=== PATIENT | female | born 1965 | race Caucasian/White ===

== ENCOUNTER 2022-12-14 23:45 | Emergency (ER) | payer SELFPAY ==
[2022-12-14 23:59] VITALS: BP 167/105; PULSE 114; RESP 18; TEMP 36.6; O2SAT 92; BMI 17.9
--- NOTE | 2022-12-15 00:13 | XRR_ITS ---
PROCEDURE INFORMATION: Exam: XR Chest Exam date and time: 12/15/2022 12:16 AM Age: 57 years old Clinical indication: Shortness of breath; Patient HX: C/O SOB. History of copd. TECHNIQUE: Imaging protocol: Radiologic exam of the chest. Views: 1 view. COMPARISON: No relevant prior studies available. FINDINGS: Lungs: The lungs are hyperinflated, consistent with COPD. Mild bilateral increased interstitial lung markings, likely chronic. No consolidative pulmonary infiltrates are noted. Pleural spaces: No pleural effusion. No pneumothorax. Heart/Mediastinum: No cardiomegaly. Vasculature: The thoracic aorta is atherosclerotic. Bones/joints: Degenerative spine changes. No acute abnormality. XR/XR chest 1V portable [id number] IMPRESSION: 1. The lungs are hyperinflated, consistent with COPD. 2. No acute abnormality demonstrated.
[2022-12-15] MEDS: predniSONE 20 mg Tablet 40 MG PO (00:16)
[2022-12-15 00:17] VITALS: BP 130/106; PULSE 118; RESP 20; O2SAT 90
[2022-12-15 00:26] VITALS: PULSE 114; RESP 18; O2SAT 94
[2022-12-15] MEDS: ipratropium-albuterol 3 mL Neb INHALATION (00:26)
[2022-12-15 00:28] VITALS: PULSE 115; RESP 18; O2SAT 93
[2022-12-15] MEDS: ibuprofen 600 mg Tablet PO (01:14)
[2022-12-15 01:17] VITALS: BP 150/93; PULSE 91; RESP 114; O2SAT 91
--- NOTE | 2022-12-15 04:09 | W.ED.SOB ---
HPI - SOB/Dyspnea General: Chief Complaint: Shortness of Breath/Dyspnea Stated Complaint: SOB Time Seen by Provider: 12/15/22 00:05 History of Present Illness: HPI Narrative: 57-year-old female with a history of COPD. She presents with some shortness of breath as her chief complaint. She was picked up this evening by [facility] deputies, and was on her way to long term. The physician at the long term wanted her to be cleared medically due to her history. She has had some wheezing and sputum production. No fever. Associated symptoms: Reports nausea; Deny abdominal pain, chest pain, fever(s), palpitations or vomiting Review of Systems Const: Reports: chills; Denies: fever(s) ENMT: Denies: throat pain Card: Denies: chest pain or palpitations Resp: Reports: dyspnea, productive cough and wheezing; Denies: stridor GI: Reports: nausea; Denies: abdominal pain or vomiting Skin/Breast: Denies: rash Physical Exam Const: COMMON NORMALS: alert GENERAL APPEARANCE: well developed ORIENTATION/CONSCIOUSNESS: Yes awake, Yes oriented to person, Yes oriented to place and Yes oriented to time HENMT: COMMON NORMALS: normocephalic, external ears normal, Normal external nose present and moist oral mucous membranes HEAD & SCALP: normocephalic; no scalp tenderness FACE & SINUS: normal facial exam NOSE: Normal external nose present and No nasal discharge present EXTERNAL EAR: Yes external ears normal MOUTH: tongue normal TEETH & GINGIVA: no abnormal tooth and associated gingiva THROAT: posterior oropharynx normal; no peritonsillar mass Eye: COMMON NORMALS: Equal, round and reactive pupils present, EOMs intact bilaterally and conjunctivae normal EYELID: eyelids normal CONJUNCTIVA: Yes conjunctivae normal PUPIL: Yes Equal, round and reactive pupils present Neck/C-Spine: COMMON NORMALS: full ROM GENERAL: Yes anterior neck swelling and No tracheal deviation CERVICAL SPINE: Yes normal cervical lordosis, No Cervical spine tenderness, No step off deformity, No Paracervical muscle tenderness and No Paracervical spasm Chest: COMMONS NORMALS: normal inspection of the chest CHEST: Yes Symmetrical chest wall rise and No tenderness Resp: COMMON NORMALS: clear to auscultation bilaterally EFFORT & INSPECTION: No tachypneic, No respiratory distress, No retractions, No uses accessory muscles and No tracheal deviation AUSCULTATION: clear to auscultation bilaterally, no rhonchi, wheezes and lung sounds not diminished Cardio: COMMON NORMALS: regular rate and regular rhythm RATE: regular rate RHYTHM: regular rhythm HEART SOUNDS: no murmurs PERIPHERAL PULSES: radial pulses present GI: INSPECTION: No abdominal distension AUSCULTATION: No Hyperactive bowel sounds present and No Hypoactive bowel sounds present PALPATION: No Tenderness to palpation present (GI), No Guarding due to palpation present (GI) and No Rigid due to palpation PERCUSSION: no dullness to percussion and no tympanic to percussion : COMMON NORMALS: Yes no CVA tenderness BLADDER/KIDNEY EXAM: Yes no CVA tenderness Back/Pelvis: COMMON NORMALS: no CVA tenderness PELVIS: Yes no pain with anterior-posterior compression and Yes no pain with lateral compression Extremity: COMMON NORMALS: no pedal edema Neuro: SENSORIUM/ORIENTATION: Yes alert, Yes oriented to person, Yes oriented to place and Yes oriented to time Psych: COMMON NORMALS: mental status grossly normal and speech normal SPEECH: Yes normal speech Skin: COMMON NORMALS: no rashes or lesions noted GENERAL SKIN EXAM: no rashes or lesions noted Course Vital Signs: Vital signs: Vital Signs Temperature 97.8 F 12/14/22 23:59 Pulse Rate 91 12/15/22 01:17 Respiratory Rate 114 H 12/15/22 01:17 Blood Pressure 150/93 12/15/22 01:17 Pulse Oximetry 91 12/15/22 01:17 Oxygen Delivery Me thod Room Air 12/15/22 00:28 MDM - SOB/Dyspnea Medical Decision Making 57-year-old female COPD patient. She is wheezing. Her vital signs are essentially normal. She is in no respiratory distress. She is afebrile. Chest x-ray is negative for infiltrate. She is given a breathing treatment here, steroids. She will be discharged on albuterol and steroids to return for any worsening symptoms. Lab Data Labs/Radiology: Radiology Impressions Chest X-Ray 12/15/22 00:13 IMPRESSION: 1. The lungs are hyperinflated, consistent with COPD. 2. No acute abnormality demonstrated. Discharge Plan Discharge Patient Disposition: Home Clinical Impression: Acute exacerbation of chronic obstructive airways disease Condition: Stable Prescriptions: New Medrol (Junito) 4 mg tablets,dose pack See Rx Instructions .ROUTE .COMPLEX Qty: 21 0RF Rx Instructions: orally per package directions albuterol sulfate 90 mcg/actuation HFA aerosol inhaler 2 inh INHALATION Q4H PRN (Reason: shortness of breath or wheezing) Qty: 6.7 1RF Discharge Orders: Discharge ED (Routine); Ordered 12/15/22 Ordered By: Jb Peters Patient Instructions: COPD (Chronic Obstructive Pulmonary Disease) (ED) Activity Restrictions/Additional Instructions: Use the inhaler every 4 hours while awake for the first 48 hours, then as needed. Other medication as directed. Coding Level of Care Code ED C[employer] for Princess Maldonado
== END 2022-12-15 01:44 | disposition home or self-care (01) ==
PROVIDERS: Emergency Provider Emergency Medicine
DX: J44.1 Chronic obstructive pulmonary disease with (acute) exacerbation (principal)
CPT/HCPCS: 71045; 94640; 99283; J7512

== ENCOUNTER 2022-12-16 03:02 | Observation (INO) | payer SELFPAY ==
[2022-12-16] VITALS (21 sets, daily range): BP systolic 107–131; BP diastolic 75–91; PULSE 86–113; RESP 15–28; TEMP 36.5–37.1; O2SAT 84–99; BMI 14.6
--- NOTE | 2022-12-16 03:28 | ECG_ITS ---
[facility] Test Date: 2022-12-16 Pat Name: Chantal Avila Department: Room: Gender: Female Senior Staff Consultant: : 1965 Requested By: Jb Murphy Order Number: [id number] Pope MD: Jasen Mckinnon M.D. Measurements Intervals [place] Rate: 101 P: 83 CO: 126 QRS: 80 QRSD: 90 T: 80 QT: 359 QTc: 467 Interpretive Statements SINUS TACHYCARDIA POSSIBLE RIGHT ATRIAL ENLARGEMENT [0.25mV P-WAVE] POSSIBLE LEFT ATRIAL ENLARGEMENT [-0.1mV P-WAVE IN V1/V2] ABNORMAL RHYTHM ECG No previous ECG available for comparison Electronically Signed On 12-16-2022 15:15:54 CDT by Jasen Mckinnon M.D. [id number] f
[2022-12-16] MEDS: ipratropium-albuterol 3 mL Neb INHALATION ×5 (04:00→20:32)
--- NOTE | 2022-12-16 04:29 | XRR_ITS ---
PROCEDURE INFORMATION: Exam: XR Chest Exam date and time: 12/16/2022 4:33 AM Age: 57 years old Clinical indication: Shortness of breath; Patient HX: C/O SOB. TECHNIQUE: Imaging protocol: Radiologic exam of the chest. Views: 1 view. COMPARISON: CR (CHEST, ) 12/15/2022 12:16 AM FINDINGS: Lungs: There is pulmonary hyperinflation consistent with advanced COPD. There is moderate interstitial coarsening/fibrosis. There is increasing opacity at the left lung base. Pleural spaces: No pleural effusion or pneumothorax. Heart/Mediastinum: Normal in size. Bones/joints: No acute fracture is identified. XR/XR chest 1V portable [id number] IMPRESSION: 1. Pulmonary hyperinflation and interstitial coarsening consistent with COPD interstitial fibrosis. 2. There is increasing opacity at the left lung base. This may represent an area of atelectasis or in the appropriate clinical setting, developing pneumonia.
[2022-12-16 04:48] LABS: Basophils # 0.2 10^3/uL (0.0-0.1); Basophils % 1.2 %; Eosinophils # 0.8 10^3/uL (0.0-0.8); Eosinophils % 6.3 %; Hematocrit 41.8 % (36-47); Lymphocytes # 3.2 10^3/uL (0.8-4.8); Mean Corpuscular HGB Conc 31.8 g/dL (30-55); Mean Corpuscular Hemoglobin 31.1 pg (27-33); Mean Corpuscular Volume 97.9 fl (85-98); Mean Platelet Volume 9.6 fL (7.4-10.4); Monocytes # 1.4 10^3/uL (0.2-0.9); Monocytes % 10.5 %; Neutrophils # 7.54 10^3/uL (1.8-7.7); Neutrophils % 57.7 %; Nucleated Red Blood Cells % 0 %; Platelet Count 453 10^3/cmm (157-399); Red Blood Count 4.27 10^6/uL (3.85-5.65); Red Cell Distribution Width 14.5 % (12.1-15.1)
[2022-12-16 05:12] LABS: Lactic Sepsis W/Reflex 0.9 mmol/L (0.5-2.2)
[2022-12-16 05:13] LABS: Alanine Aminotransferase 10 U/L (0-33); Albumin Level 3.5 g/dL (3.5-5.2); Alkaline Phosphatase 132 U/L (35-105); Anion Gap 13.5 (5-19); Aspartate Amino Transferase 14 U/L (0-32); Blood Urea Nitrogen 18 mg/dL (6-20); Calcium 8.7 mg/dL (8.5-10.5); Carbon Dioxide 26 mmol/L (22-29); Chloride 102 mmol/L (98-107); Globulin 3.9 g/dL (1.3-4.6); Glomerular Filtration Rate 128.1 mL/min (90-130); Glucose 102 mg/dL (65-115); Osmolality Calculated 288 mOsm/kg (285-295); Potassium 3.5 mmol/L (3.5-5.1); Sodium 138 mmol/L (136-145); Total Bilirubin 0.3 mg/dL (0.15-1.2); Total Protein 7.4 g/dL (6.6-8.7)
[2022-12-16] MEDS: cefTRIAXone 1,000 MG in sodium chloride 0.9% (plus) 50 ML 100 MG IV (06:06)
[2022-12-16] MEDS: azithromycin 500 MG in sodium chloride 0.9% 250 ML 250 MG IV (06:09)
--- NOTE | 2022-12-16 06:38 | ED_ITS ---
Documented by User: Jb Peters, 12/16/22 15:16 HPI - SOB/Dyspnea General: Chief Complaint: Shortness of Breath/Dyspnea Stated Complaint: SOB Time Seen by Provider: 12/16/22 04:10 Source: patient History of Present Illness: HPI Narrative: 57-year-old female with a history of COPD whom I saw night before last with shortness of breath. She was diagnosed with COPD exacerbation, placed on Medrol Dosepak, albuterol inhaler, and allowed to be discharged. She was in custody at that point. She presents this morning with continued shortness of breath. Evidently she was 84% on room air in the [place] [facility]. She was in mild respiratory distress. She was brought here for evaluation. Evidently the [place] [facility] does not have oxygen availability currently. MD elicited complaint: shortness of breath Associated symptoms: Reports nausea; Deny abdominal pain, chest pain, fever(s), palpitations or vomiting Review of Systems General: Denies: ROS unobtainable due to mental status Const: Reports: chills; Denies: fever(s) ENMT: Denies: throat pain Card: Denies: chest pain or palpitations Resp: Reports: dyspnea and productive cough GI: Reports: nausea; Denies: abdominal pain or vomiting Skin/Breast: Denies: rash Neuro: Denies: headache(s) or confusion Physical Exam Const: GENERAL APPEARANCE: cooperative, ill appearing and frail appearing HENMT: COMMON NORMALS: normocephalic, atraumatic and Normal external nose present HEAD & SCALP: normocephalic and atraumatic FACE & SINUS: normal facial exam and face symmetric NOSE: Normal external nose present Eye: COMMON NORMALS: Equal, round and reactive pupils present and EOMs intact bilaterally PUPIL: Yes Equal, round and reactive pupils present Neck/C-Spine: GENERAL: Yes trachea midline Chest: CHEST: Yes Symmetrical chest wall rise Resp: EFFORT & INSPECTION: Yes tachypneic AUSCULTATION: rhonchi and wheezes Cardio: COMMON NORMALS: regular rhythm RATE: tachycardic RHYTHM: regular rhythm GI: COMMON NORMALS: Normal to inspection, nondistended, normoactive bowel sounds present Extremity: COMMON NORMALS: no pedal edema Neuro: IBAN COMA SCALE: document GCS findings Iban coma scale eye opening: Spontaneous Iban coma scale verbal response: Orientated Iban coma scale motor response: Obey commands [place] coma scale total score: 15 SENSORY EXAM: Yes extremities (intact) Psych: COMMON NORMALS: speech normal SPEECH: Yes normal speech Skin: COMMON NORMALS: no rashes or lesions noted GENERAL SKIN EXAM: no rashes or lesions noted Course Vital Signs: Vital signs: Vital Signs Temperature 98.2 F 12/16/22 12:00 Pulse Rate 99 12/16/22 12:00 Respiratory Rate 15 12/16/22 12:00 Blood Pressure 117/75 12/16/22 12:00 Pulse Oximetry 96 12/16/22 12:00 Oxygen Delivery Me thod Nasal Cannula 12/16/22 13:52 Oxygen Flow Rate 2 12/16/22 11:10 MDM - SOB/Dyspnea Medical Decision Making The patient is oxygen dependent at this point. Room air saturations are in the mid 80s. She is 98% on 2 L. Other vitals are normal. White blood cell count is 13. Chest x-ray shows an opacity in the left lung base consistent with early pneumonia that was not present on the chest x-ray done 24 hours prior. Lactic acid is 0.9. Other laboratory is not remarkable. Given she is oxygen dependent, has leukocytosis and a left lower lobe infiltrate, without availability to oxygen as an outpatient, she will require admission. Lab Data 12/16/22 04:44 12/16/22 04:44 Labs/Radiology: Radiology Impressions Chest X-Ray 12/16/22 04:29 IMPRESSION: 1. Pulmonary hyperinflation and interstitial coarsening consistent with COPD interstitial fibrosis. 2. There is increasing opacity at the left lung base. This may represent an area of atelectasis or in the appropriate clinical setting, developing pneumonia. Laboratory Results WBC 13.10 10^3/uL (3.29-11.43) H 12/16/22 04:44 RBC 4.27 10^6/uL (3.85-5.65) 12/16/22 04:44 Hgb 13.30 g/dL (11.27-16.99) 12/16/22 04:44 Hct 41.8 % (36-47) 12/16/22 04:44 MCV 97.9 fl (85-98) 12/16/22 04:44 MCH 31.1 pg (27-33) 12/16/22 04:44 MCHC 31.8 g/dL (30-55) 12/16/22 04:44 RDW 14.5 % (12.1-15.1) 12/16/22 04:44 Plt Count 453 10^3/cmm (157-399) H 12/16/22 04:44 MPV 9.6 fL (7.4-10.4) 12/16/22 04:44 Neut % (Auto) 57.7 % 12/16/22 04:44 Lymph % (Auto) 24.0 % 12/16/22 04:44 [place] % (Auto) 10.5 % 12/16/22 04:44 Eos % (Auto) 6.3 % 12/16/22 04:44 Baso % (Auto) 1.2 % 12/16/22 04:44 Neut # (Auto) 7.54 10^3/uL (1.8-7.7) 12/16/22 04:44 Lymph # (Auto) 3.2 10^3/uL (0.8-4.8) 12/16/22 04:44 [place] # (Auto) 1.4 10^3/uL (0.2-0.9) H 12/16/22 04:44 Eos # (Auto) 0.8 10^3/uL (0.0-0.8) 12/16/22 04:44 Baso # (Auto) 0.2 10^3/uL (0.0-0.1) H 12/16/22 04:44 Nucleated RBC % (auto) 0 % 12/16/22 04:44 Nucleated RBCs # 0.0 /100WBC 12/16/22 04:44 Specimen Type Arterial 12/16/22 07:25 Sample Site Brachial, right 12/16/22 07:25 ABG pH 7.40 (7.35-7.45) 12/16/22 07:25 ABG pCO2 45.5 mmHg (35-45) H 12/16/22 07:25 ABG pO2 79.9 mmHg (80.0-100.0) L 12/16/22 07:25 ABG HCO3 28.2 mmol/L (22-26) H 12/16/22 07:25 ABG O2 Saturation 96.7 12/16/22 07:25 ABG Base Excess 2.9 mmol/L (-2.0-2.0) H 12/16/22 07:25 Barron Test N/a 12/16/22 07:25 A-a O2 Gradient 8.2 mmHg (5-10) 12/16/22 07:25 Hematocrit 36.1 % (37-47) L 12/16/22 07:25 Hgb O2 Saturation 94.5 % (95-100) L 12/16/22 07:25 Carboxyhemoglobin 1.8 %THgb (0.4-20.1) 12/16/22 07:25 Methemoglobin 0.5 % (0.4-1.5) 12/16/22 07:25 Total Hemoglobin 11.8 g/dL (12-16) L 12/16/22 07:25 Sodium 137.0 mmol/L (131-143) 12/16/22 07:25 Potassium 5.2 mmol/L (3.5-5.0) H 12/16/22 07:25 Glucose 99.0 mg/dL (70-115) 12/16/22 07:25 Ionized Calcium 1.2 mmol/L (1.1-1.4) 12/16/22 07:25 O2 Delivery Device Nc 12/16/22 07:25 O2 Liters/Min 2.0 % 12/16/22 07:25 FiO2 28.0 % 12/16/22 07:25 Molded Goods Controls Operator ID Gd 12/16/22 07:25 Sodium 138 mmol/L (136-145) 12/16/22 04:44 Potassium 3.5 mmol/L (3.5-5.1) 12/16/22 04:44 Chloride 102 mmol/L (98-107) 12/16/22 04:44 Carbon Dioxide 26 mmol/L (22-29) 12/16/22 04:44 Anion Gap 13.5 (5-19) 12/16/22 04:44 BUN 18 mg/dL (6-20) 12/16/22 04:44 Creatinine 0.5 mg/dL (0.5-0.9) 12/16/22 04:44 GFR Calculation 128.1 mL/min (90-130) 12/16/22 04:44 Glucose 102 mg/dL (65-115) 12/16/22 04:44 Calculated Osmolality 288 mOsm/kg (285-295) 12/16/22 04:44 Lactic Acid 0.9 mmol/L (0.5-2.2) 12/16/22 04:44 Calcium 8.7 mg/dL (8.5-10.5) 12/16/22 04:44 Total Bilirubin 0.3 mg/dL (0.15-1.2) 12/16/22 04:44 AST 14 U/L (0-32) 12/16/22 04:44 ALT 10 U/L (0-33) 12/16/22 04:44 Alkaline Phosphatase 132 U/L (35-105) H 12/16/22 04:44 Total Protein 7.4 g/dL (6.6-8.7) 12/16/22 04:44 Albumin 3.5 g/dL (3.5-5.2) 12/16/22 04:44 Globulin 3.9 g/dL (1.3-4.6) 12/16/22 04:44 Discharge Plan Discharge Patient Disposition: Admitted As Inpatient Admit Provider: Leonard Anderson Clinical Impression: Community acquired pneumonia, Acute respiratory failure with hypoxia Condition: Stable Sign Out Sign Out Data: Patient Sign Out occurred on 12/16/22 at 07:16. Patient's care was discussed, and care was transferred from to Jean Marie Samano DO. Coding Level of Care Code ED Hospital Receptionist for Chg Fwd Documented by User: Jean Marie Samano DO 12/16/22 07:40 HPI - SOB/Dyspnea General: Chief Complaint: Shortness of Breath/Dyspnea Stated Complaint: SOB Time Seen by Provider: 12/16/22 04:10 Course Vital Signs: Vital signs: Vital Signs Temperature 98.2 F 12/16/22 12:00 Pulse Rate 99 12/16/22 12:00 Respiratory Rate 15 12/16/22 12:00 Blood Pressure 117/75 12/16/22 12:00 Pulse Oximetry 96 12/16/22 12:00 Oxygen Delivery Me thod Nasal Cannula 12/16/22 13:52 Oxygen Flow Rate 2 12/16/22 11:10 MDM - SOB/Dyspnea Medical Decision Making The patient is oxygen dependent at this point. Room air saturations are in the mid 80s. She is 98% on 2 L. Other vitals are normal. White blood cell count is 13. Chest x-ray shows an opacity in the left lung base consistent with early pneumonia that was not present on the chest x-ray done 24 hours prior. Lactic acid is 0.9. Other laboratory is not remarkable. Given she is oxygen dependent, has leukocytosis and a left lower lobe infiltrate, without availability to oxygen as an outpatient, she will require admission. Care assumed at change of shift. Discussed with Dr. Meléndez for hospitalist ser vice will admit for pneumonia, exacerbation COPD with hypoxia Medical Records I reviewed the patient's medical records. Lab Data I reviewed the patient's lab results. 12/16/22 04:44 12/16/22 04:44 Labs/Radiology: Radiology Impressions Chest X-Ray 12/16/22 04:29 IMPRESSION: 1. Pulmonary hyperinflation and interstitial coarsening consistent with COPD interstitial fibrosis. 2. There is increasing opacity at the left lung base. This may represent an area of atelectasis or in the appropriate clinical setting, developing pneumonia. Laboratory Results WBC 13.10 10^3/uL (3.29-11.43) H 12/16/22 04:44 RBC 4.27 10^6/uL (3.85-5.65) 12/16/22 04:44 Hgb 13.30 g/dL (11.27-16.99) 12/16/22 04:44 Hct 41.8 % (36-47) 12/16/22 04:44 MCV 97.9 fl (85-98) 12/16/22 04:44 MCH 31.1 pg (27-33) 12/16/22 04:44 MCHC 31.8 g/dL (30-55) 12/16/22 04:44 RDW 14.5 % (12.1-15.1) 12/16/22 04:44 Plt Count 453 10^3/cmm (157-399) H 12/16/22 04:44 MPV 9.6 fL (7.4-10.4) 12/16/22 04:44 Neut % (Auto) 57.7 % 12/16/22 04:44 Lymph % (Auto) 24.0 % 12/16/22 04:44 [place] % (Auto) 10.5 % 12/16/22 04:44 Eos % (Auto) 6.3 % 12/16/22 04:44 Baso % (Auto) 1.2 % 12/16/22 04:44 Neut # (Auto) 7.54 10^3/uL (1.8-7.7) 12/16/22 04:44 Lymph # (Auto) 3.2 10^3/uL (0.8-4.8) 12/16/22 04:44 [place] # (Auto) 1.4 10^3/uL (0.2-0.9) H 12/16/22 04:44 Eos # (Auto) 0.8 10^3/uL (0.0-0.8) 12/16/22 04:44 Baso # (Auto) 0.2 10^3/uL (0.0-0.1) H 12/16/22 04:44 Nucleated RBC % (auto) 0 % 12/16/22 04:44 Nucleated RBCs # 0.0 /100WBC 12/16/22 04:44 Specimen Type Arterial 12/16/22 07:25 Sample Site Brachial, right 12/16/22 07:25 ABG pH 7.40 (7.35-7.45) 12/16/22 07:25 ABG pCO2 45.5 mmHg (35-45) H 12/16/22 07:25 ABG pO2 79.9 mmHg (80.0-100.0) L 12/16/22 07:25 ABG HCO3 28.2 mmol/L (22-26) H 12/16/22 07:25 ABG O2 Saturation 96.7 12/16/22 07:25 ABG Base Excess 2.9 mmol/L (-2.0-2.0) H 12/16/22 07:25 Barron Test N/a 12/16/22 07:25 A-a O2 Gradient 8.2 mmHg (5-10) 12/16/22 07:25 Hematocrit 36.1 % (37-47) L 12/16/22 07:25 Hgb O2 Saturation 94.5 % (95-100) L 12/16/22 07:25 Carboxyhemoglobin 1.8 %THgb (0.4-20.1) 12/16/22 07:25 Methemoglobin 0.5 % (0.4-1.5) 12/16/22 07:25 Total Hemoglobin 11.8 g/dL (12-16) L 12/16/22 07:25 Sodium 137.0 mmol/L (131-143) 12/16/22 07:25 Potassium 5.2 mmol/L (3.5-5.0) H 12/16/22 07:25 Glucose 99.0 mg/dL (70-115) 12/16/22 07:25 Ionized Calcium 1.2 mmol/L (1.1-1.4) 12/16/22 07:25 O2 Delivery Device Nc 12/16/22 07:25 O2 Liters/Min 2.0 % 12/16/22 07:25 FiO2 28.0 % 12/16/22 07:25 Molded Goods Controls Operator ID Gd 12/16/22 07:25 Sodium 138 mmol/L (136-145) 12/16/22 04:44 Potassium 3.5 mmol/L (3.5-5.1) 12/16/22 04:44 Chloride 102 mmol/L (98-107) 12/16/22 04:44 Carbon Dioxide 26 mmol/L (22-29) 12/16/22 04:44 Anion Gap 13.5 (5-19) 12/16/22 04:44 BUN 18 mg/dL (6-20) 12/16/22 04:44 Creatinine 0.5 mg/dL (0.5-0.9) 12/16/22 04:44 GFR Calculation 128.1 mL/min (90-130) 12/16/22 04:44 Glucose 102 mg/dL (65-115) 12/16/22 04:44 Calculated Osmolality 288 mOsm/kg (285-295) 12/16/22 04:44 Lactic Acid 0.9 mmol/L (0.5-2.2) 12/16/22 04:44 Calcium 8.7 mg/dL (8.5-10.5) 12/16/22 04:44 Total Bilirubin 0.3 mg/dL (0.15-1.2) 12/16/22 04:44 AST 14 U/L (0-32) 12/16/22 04:44 ALT 10 U/L (0-33) 12/16/22 04:44 Alkaline Phosphatase 132 U/L (35-105) H 12/16/22 04:44 Total Protein 7.4 g/dL (6.6-8.7) 12/16/22 04:44 Albumin 3.5 g/dL (3.5-5.2) 12/16/22 04:44 Globulin 3.9 g/dL (1.3-4.6) 12/16/22 04:44 Discharge Plan Discharge Patient Disposition: Admitted As Inpatient Admit Provider: Leonard Anderson Clinical Impression: Community acquired pneumonia, Acute respiratory failure with hypoxia Condition: Stable Sign Out Sign Out Data: Patient Sign Out occurred on 12/16/22 at 07:16. Patient's care was discussed, and care was transferred from to Jean Marie Samano DO. Coding Level of Care Code ED Hospital Receptionist for Princess Maldonado
[2022-12-16 07:40] LABS: ABG PCO2 45.5 mmHg (35-45); Alveolar-Arterial Oxygen Gradi 8.2 mmHg (5-10); Arterial Blood Gas Hematocrit 36.1 % (37-47); Base Excess ABG 2.9 mmol/L (-2.0-2.0); Blood Gas Operator Identificat GD; Blood Gas Sample Site Brachial, right; Blood Gas Sample Type Arterial; Carboxyhemoglobin 1.8 %THgb (0.4-20.1); HCO3 ABG 28.2 mmol/L (22-26); HGB O2 Sat 94.5 % (95-100); Ionized Calcium Level - ABG 1.2 mmol/L (1.1-1.4); Methemoglobin 0.5 % (0.4-1.5); Oxygen Device NC; Oxygen Saturation ABG 96.7; PO2 ABG 79.9 mmHg (80.0-100.0); Potassium Level - ABG 5.2 mmol/L (3.5-5.0); Total Hemoglobin 11.8 g/dL (12-16)
--- NOTE | 2022-12-16 10:52 | PM.HP ---
Providers/Chief Complaint Admitting Physician: Leonard Anderson DO Chief Complaint: SOB History of Present Illness Chantal Avila is a 57 year old female with a PMH of severe emphysema, and who is currently in the custody of the [facility] department, presented to the ER today with shortness of breath. Patient says for the last few days she has had cough, increasing sputum production, and she has not had her home medications for a few weeks. States that she normally uses albuterol several times a day for her symptoms. She tells me that she has been wheezing more for the last 2 days. Denies any fever, chills, chest pain, nausea/vomiting/diarrhea. She is normally not on oxygen at baseline. She does admit to smoking a pack per day. In the ER, she was noted to be hypoxic upon admission with sats into the 80s. She was started on 2 L of oxygen and this improved. Chest x-ray demonstrated changes consistent with emphysema. There was concern of a mild consolidation beginning. She was given a dose of Rocephin and azithromycin in the ER. Labs revealed a WBC count of 13, with the rest of the labs unremarkable.EKG showed sinus tachycardia. She was admitted to the [facility] surgical floor. Review of Systems General: Reports: 10 or more systems reviewed and unremarkable except in HPI and below Const: Denies: fever(s) or chills ENMT: Denies: throat pain Card: Denies: chest pain or palpitations Resp: Reports: dyspnea, productive cough and wheezing GI: Denies: abdominal pain, nausea or vomiting : Denies: flank pain Skin/Breast: Denies: rash Neuro: Denies: headache(s) Psych: Reports: anxiety Medications/Allergies Home Medications Medication Instructions Recorded Confirmed Last Taken Type albuterol sulfate 90 mcg/actuation 2 inh inhalation Q4H PRN shortness 12/15/22 12/16/22 Unknown Rx aerosol inhaler of breath or wheezing #6.7 grams methylprednisolone 4 mg tablets in See Rx Instructions PO .COMPLEX 12/15/22 12/16/22 Unknown Rx a dose pack (Medrol (Junito)) #21 ea Allergies Allergy/AdvReac Type Severity Reaction Status Date / Time orange flavor Allergy ADR-Nausea Verified 12/15/22 00:08 Vitals/I&O/Wt Last Vital Signs Temp 97.7 F 12/16/22 04:32 Pulse 88 12/16/22 09:06 Resp 20 H 12/16/22 08:58 BP 107/81 12/16/22 08:02 Pulse Ox 93 12/16/22 09:07 O2 Del Method Nasal Cannula 12/16/22 09:07 O2 Flow Rate 2 12/16/22 09:07 12/15/22 12/16/22 12/16/22 22:59 06:59 14:59 Intake Total 50 / 50 Balance 50 / 50 Weight last 48 hrs Weight 80 lb Physical Exam Narrative: General: Cachectic, anxious appearing female. She is cooperative. HEENT: Normocephalic, Atraumatic. External ears normal. Nasal passages patent without drainage. MMM. Heart: RRR. Resp: Lung sounds are greatly diminished throughout the bell. There are scattered wheezes throughout the lungs. Mild bibasilar Rales are present. Abd: Soft, non-tender. Non-distended. Extremities: No edema. Skin: No rash or lesions on exposed areas. Data 12/16/22 04:44 12/16/22 04:44 A&P Assessment and plan (1) Acute exacerbation of chronic obstructive airways disease: (2) Community acquired pneumonia: (3) Acute respiratory failure with hypoxia: Plan 57-year-old female admitted for COPD exacerbation, possibility of community-acquired pneumonia, and acute respiratory failure with hypoxia. We will admit for observation. CBC showed WBC count of 13. Chest x-ray showed emphysema with possible developing pneumonia. She is currently requiring supplemental oxygen. She received 1 dose of Rocephin and azithromycin in the emergency room. Continue daily. Solu-Medrol 60mg daily. DuoNebs every 6 hours. RAAT, O2 protocol. Goal to maintain oxygen saturations around 90% for respiratory drive. Recheck am labs. Will reevaluate her in the morning in regards to her oxygenation. If she is maintaining her sats on, room air, with activity, she can possibly be discharged tomorrow. Code Status: Full IVF: None DVT PPx: SCDs GI PPx: None ABx: Rocephin, azithromycin Diet: Regular Discharge plan: Home when stable Attestations Medical Necessity Statement*: Admit for observation and treatment of COPD exacerbation, possible pneumonia, acute respiratory failure with hypoxia requiring supplemental oxygen. Coding Level of Care Code Acute Code for Chg Fwd Diagnoses Acute exacerbation of chronic obstructive airways disease J44.1 Community acquired pneumonia J18.9 Acute respiratory failure with hypoxia J96.01
[2022-12-16] MEDS: sodium chloride 0.9% 1,000 ML 100 ML IV ×2 (12:43→20:23)
[2022-12-16] MEDS: methylPREDNISolone sod succ 60 MG in water for injection-sterile 0.96 ML 11.52 MG IVP (12:43)
[2022-12-16] MEDS: acetaminophen 325 mg Tablet 650 MG PO (13:24)
[2022-12-16] MEDS: nicotine 14 mg Patch 1 PATCH TRANSDERMA (18:21)
[2022-12-16] MEDS: ropinirole 0.25 mg Tablet PO (20:23)
[2022-12-17] VITALS (12 sets, daily range): BP systolic 126–132; BP diastolic 53–86; PULSE 91–128; RESP 16–22; TEMP 36.4–37.1; O2SAT 93–99
[2022-12-17] MEDS: acetaminophen 325 mg Tablet 650 MG PO ×2 (00:53→08:13)
[2022-12-17 05:21] LABS: Basophils # 0.1 10^3/uL (0.0-0.1); Basophils % 0.7 %; Eosinophils % 0.2 %; Hematocrit 41.5 % (36-47); Lymphocytes # 3.7 10^3/uL (0.8-4.8); Lymphocytes % 30.5 %; Mean Corpuscular HGB Conc 31.1 g/dL (30-55); Mean Corpuscular Hemoglobin 30.9 pg (27-33); Mean Corpuscular Volume 99.3 fl (85-98); Mean Platelet Volume 10.3 fL (7.4-10.4); Monocytes # 1.5 10^3/uL (0.2-0.9); Neutrophils # 6.93 10^3/uL (1.8-7.7); Neutrophils % 56.4 %; Nucleated Red Blood Cells % 0 %; Platelet Count 393 10^3/cmm (157-399); Red Blood Count 4.18 10^6/uL (3.85-5.65); Red Cell Distribution Width 14.3 % (12.1-15.1); White Blood Count 12.27 10^3/uL (3.29-11.43)
[2022-12-17] MEDS: sodium chloride 0.9% 1,000 ML 100 ML IV (05:26)
[2022-12-17 05:44] LABS: Alanine Aminotransferase 16 U/L (0-33); Albumin Level 3.1 g/dL (3.5-5.2); Alkaline Phosphatase 118 U/L (35-105); Anion Gap 14.7 (5-19); Aspartate Amino Transferase 22 U/L (0-32); Blood Urea Nitrogen 15 mg/dL (6-20); Calcium 8.7 mg/dL (8.5-10.5); Carbon Dioxide 23 mmol/L (22-29); Chloride 104 mmol/L (98-107); Globulin 3.6 g/dL (1.3-4.6); Glomerular Filtration Rate 165.7 mL/min (90-130); Glucose 109 mg/dL (65-115); Osmolality Calculated 287 mOsm/kg (285-295); Potassium 3.7 mmol/L (3.5-5.1); Sodium 138 mmol/L (136-145); Total Bilirubin 0.2 mg/dL (0.15-1.2); Total Protein 6.7 g/dL (6.6-8.7)
[2022-12-17 05:48] LABS: Procalcitonin 0.08 ng/mL (0-0.5)
[2022-12-17] MEDS: nicotine 14 mg Patch 1 PATCH TRANSDERMA (07:48)
[2022-12-17] MEDS: cefTRIAXone 1,000 MG in sodium chloride 0.9% (plus) 50 ML 100 MG IV (07:48)
[2022-12-17] MEDS: methylPREDNISolone sod succ 60 MG in water for injection-sterile 0.96 ML 11 MG IVP (08:07)
[2022-12-17] MEDS: ipratropium-albuterol 3 mL Neb INHALATION ×4 (08:15→20:06)
[2022-12-17] MEDS: azithromycin 250 MG in sodium chloride 0.9% 250 ML IV (09:31)
--- NOTE | 2022-12-17 10:38 | PC.CHAP ---
Pastoral Care Encounter/Spiritual Assessment Type of Contact [] Declined boat outfitter visit [] Patient/Family/Request visit [] Outpatient visit [] Follow-up visit [] Physician referral [] Code/Alert [x] Routine visit [] Staff referral [] Actively dying [] Patient sleeping [] Family support [] [] Out of room [] Palliative care [] [x] Receiving care in room [] Pre-surgical visit [] Trauma [] Long length of stay [] ICU visit [] Other: Relational/Emotional Strength [] Patient feels connected with others/family/visitors/staff [] Distress [] Loneliness/isolation [] Abandonment Spirituality of Patient [] Person of Mary Ellen [] Attends Shinto of their Mary Ellen [] Believes in Prayer [] Reads Bible or Latter Day materials [] There are Spiritual issues to be addressed Warehouse Forklift Operator Interventions x] Prayer [x] Active listening [] Non-anxious presence [] Spiritual/emotional support [] Crisis/trauma care [] Spiritual counseling [] Bereavement support [] Provided bereavement packet [] Provided Bible/devotional materials [] Provided toy/stuffed animal, coloring book to patient or family member [] Provided Communion [] Anointing/[place] [] Salvation [] Completed spiritual assessment [] Other: Impact on Illness or Injury [] Angry [] Fearful [] Anxious [] Often cries [] Exhaustion [] Unable to work [] Unable to attend sabianist [] Unable to walk/stand [] Unable to read [] Unable to drive [] Unable to eat/drink [] Unable to sleep [] Unable to be with family [] Patient intubated [] Other: Summary Time spent with patient 5 min
--- NOTE | 2022-12-17 10:39 | ECG_ITS ---
[facility] Test Date: 2022-12-17 Pat Name: Chantal Avila Department: Room: 259 Gender: Female Lead Person: : 1965 Requested By: Tony Busch Order Number: [id number] Niko MD: Jasen Mckinnon M.D. Measurements Intervals [place] Rate: 95 P: 80 MN: 131 QRS: 75 QRSD: 87 T: 80 QT: 358 QTc: 450 Interpretive Statements SINUS RHYTHM Compared to ECG 12/16/2022 03:28:18 Sinus tachycardia no longer present Electronically Signed On 12-17-2022 11:31:56 CDT by Jasen Mckinnon M.D. [email or web address].[facility] gro[facility] centerGeneral Electricselect medical cleveland clinic rehabilitation hospital, beachwoodGnammo/store/OM/[id number]
[2022-12-17 10:54] LABS: NT Pro B Type Natriuretic Pept 488 pg/mL (0-125)
[2022-12-17 11:06] LABS: Troponin(5th) Baseline 6 ng/L (0-10)
--- NOTE | 2022-12-17 11:30 | ECG_ITS ---
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 Measurements Intervals [place] Rate: 93 P: 81 CA: 116 QRS: 72 QRSD: 94 T: 81 QT: 356 QTc: 443 Interpretive Statements SINUS RHYTHM WITH SHORT CA INTERVAL Compared to ECG 12/17/2022 10:39:17 Short CA interval now present Electronically Signed On 12-17-2022 11:32:31 CDT by Jasen Mckinnon M.D. [email or web address] Pharmaceuticalspascagoula hospitalPaxerohiohealth d[facility].[employer]/store/OM/[id number]
--- NOTE | 2022-12-17 11:34 | PC.NURSE ---
Waiting on response from f/u appts.
[2022-12-17] MEDS: ALPRAZolam 0.5 mg Tablet 0.25 MG PO ×2 (12:49→23:01)
[2022-12-17 13:14] LABS: Troponin 5 2HR 6 ng/L (0-10); Troponin 5 2HR Delta 0 ABS# (0-10)
--- NOTE | 2022-12-17 15:50 | CTR_ITS ---
PROCEDURE INFORMATION: Exam: CTA Chest With Contrast Exam date and time: 12/18/2022 1:04 AM Age: 57 years old Clinical indication: Dyspnea; Additional info: SOB TECHNIQUE: Imaging protocol: Computed tomographic angiography of the chest with contrast. Exam focused on the arteries. 3D rendering (Not supervised by radiologist): MIP and/or 3D reconstructed images were created by the technologist. Radiation optimization: All CT scans at this facility use at least one of these dose optimization techniques: automated exposure control; mA and/or kV adjustment per patient size (includes targeted exams where dose is matched to clinical indication); or iterative reconstruction. Contrast material: OMNI 350; Contrast volume: 100 ml; Contrast route: INTRAVENOUS (IV); REPORTING DATA: Count of CT and Cardiac NM exams in prior 12 months: This patient has received 0 known CTs and 0 known cardiac nuclear medicine studies in the 12 months prior to the current study. COMPARISON: CR (CHEST, ) 12/16/2022 4:33 AM RADIATION DOSE METRICS: Total DLP (mGy-cm): 127.41 FINDINGS: Pulmonary arteries: No filling defects in the pulmonary arteries to suggest pulmonary emboli. Aorta: There is no thoracic aortic aneurysm or dissection. There is mild scattered atherosclerotic calcification throughout the thoracic aorta. Renal arteries: There is mild stenosis at the origin of the right main renal artery and moderate stenosis at the origin of the left main renal artery. The celiac trunk and visualized proximal superior mesenteric artery appear widely patent. Other arteries: There is calcification of the ligamentum arteriosum. Lungs: Severe bilateral centrilobular emphysema with superimposed bibasilar opacities. There is debris in multiple bilateral lower lobe bronchi that may represent secretions and/or aspirate. Pleural spaces: Unremarkable. No pneumothorax. No pleural effusion. Heart: The heart is normal in size. There are no pericardial fluid collections. Lymph nodes: There are bilateral hilar lymph nodes, as large as 14 x 11 mm on the right. Kidneys and ureters: There is a 3 mm nonobstructive calculus in the upper pole left kidney. Bones/joints: Multilevel degenerative disc disease without significant spinal canal stenosis. Moderate chronic appearing superior endplate compression fracture of T8, the site of a lytic bone lesion likely a hemangioma. Soft tissues: Unremarkable. CT/CT angio chest PE protcl [id number] IMPRESSION: 1. No evidence of pulmonary embolus. 2. Severe bilateral centrilobular emphysema with superimposed bibasilar opacities. These may represent atelectasis or in the appropriate clinical setting, pneumonia, such as aspiration related. The presence of mildly enlarged bilateral hilar lymph nodes favors pneumonia. 3. Moderate chronic appearing superior endplate compression fracture of T8, likely at the site of a hemangioma. 4. 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 5. Punctate nonobstructive left nephrolithiasis. COMMENTS: In the absence of a history or active diagnosis of lung cancer, it is recommended that this patient with emphysema be evaluated for enrollment in a low dose CT lung cancer screening program.
--- NOTE | 2022-12-17 15:52 | P.PN_ITS ---
Subjective Subjective: Patient was seen this morning, she continues to complain of shortness of breath and wheezing, we discussed her BMI 14.6, denies any rapid weight loss, no bloody or black stools, no hemoptysis, does have a chronic cough, reports that she is from [place], Vitals/I&O/Wt Last Vital Signs Temp 98.3 F 12/17/22 15:23 Pulse 97 12/17/22 15:23 Resp 18 12/17/22 15:23 BP 127/86 12/17/22 15:23 Pulse Ox 99 12/17/22 15:23 O2 Del Method Nasal Cannula 12/17/22 15:23 O2 Flow Rate 2 12/17/22 15:10 12/17/22 12/17/22 12/17/22 06:59 14:59 22:59 Intake Total 1595 / 2972.627 1439.293 / 1439.293 Balance 1595 / 2972.627 1439.293 / 1439.293 Weight last 48 hrs Weight 36.287 kg Physical Exam Const: COMMON NORMALS: no acute distress and patient oriented x3 Resp: COMMON NORMALS: normal respiratory effort, No retractions and No use of accessory muscles AUSCULTATION: crackles and wheezes OTHER: Wheezing and crackles in all lung bell Cardio: COMMON NORMALS: regular rate, regular rhythm, S1 normal heart sound present and S2 normal heart sound present RATE: regular rate RHYTHM: regular rhythm HEART SOUNDS: S1 normal heart sound present and S2 normal heart sound present GI: COMMON NORMALS: Normal to inspection, nondistended, normoactive bowel sounds present and non-tender Extremity: COMMON NORMALS: no pedal edema Neuro: COMMON NORMALS: patient oriented x3 Psych: COMMON NORMALS: mental status grossly normal Skin: NARRATIVE SKIN EXAM: Severe protein calorie malnutrition, physical deconditioning, with muscle wa sting temporal muscle wasting, muscle wasting of bilateral shoulders, arms, bilateral thighs, calves Data 12/17/22 04:33 12/17/22 04:33 A&P Assessment and plan (1) Acute exacerbation of chronic obstructive airways disease: (2) Community acquired pneumonia: (3) Acute respiratory failure with hypoxia: (4) Anorexia: (5) Physical deconditioning: (6) Protein calorie malnutrition: Plan 57-year-old female admitted for COPD exacerbation, possibility of community- acquired pneumonia, and acute respiratory failure with hypoxia. We will change inpatient as she continues to have wheezing and shortness of breath requiring oxygen CBC showed WBC count of 13. Chest x-ray showed emphysema with possible developing pneumonia. She is currently requiring supplemental oxygen. She received 1 dose of Rocephin and azithromycin in the emergency room. Continue Rocephin, azithromycin Increase Solu-Medrol to 40 IV every 8 hours DuoNebs every 6 hours. Add budesonide RAAT, O2 protocol. Goal to maintain oxygen saturations around 90% for respiratory drive. Severe protein calorie malnutrition, physical deconditioning, anorexia, consult dietary, HIV, hep C, TSH, A1c, CT angiogram of the chest Code Status: Full IVF: None DVT PPx: SCDs, lovenox GI PPx: None ABx: Rocephin, azithromycin Diet: Regular Discharge plan: Home when stable Attestations Medical Necessity Statement*: Patient requires hospitalization for COPD exacerbation, pneumonia, acute hypoxic respiratory failure, physical deconditioning, protein naomi malnutrition, a norexia, Diagnoses Acute exacerbation of chronic obstructive airways disease J44.1 Community acquired pneumonia J18.9 Acute respiratory failure with hypoxia J96.01 Anorexia R63.0 Physical deconditioning R53.81 Protein calorie malnutrition E46
--- NOTE | 2022-12-17 15:58 | ECG_ITS ---
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 Measurements Intervals [place] Rate: 100 P: 78 MN: 107 QRS: 74 QRSD: 89 T: 82 QT: 341 QTc: 440 Interpretive Statements SINUS TACHYCARDIA WITH SHORT [place] INTERVAL Compared to ECG 12/17/2022 11:30:38 Sinus rhythm no longer present Electronically Signed On 12-17-2022 20:39:43 CDT by Jasen Mckinnon M.D. [email or web address] medical centerTradeRoom Internationalmarion hospital.[employer]/store/[id number]
[2022-12-17] MEDS: enoxaparin 40 mg/0.4 mL Syringe SUBCUT (16:26)
[2022-12-17 16:43] LABS: Chol HDL Ratio 1.76 mg/dL (0.0-4.40); Cholesterol 127 mg/dL (0-200); HDL Cholesterol 72 mg/dL (60-100); LDL Cholesterol Calculated 40 mg/dL (50-129); LDL HDL Ratio 0.56 RATIO (0.00-3.22); Triglycerides 73 mg/dL (0-150)
[2022-12-17 17:00] LABS: Hepatitis A Antibody IgM Non-Reactive (Nonreactive); Hepatitis B Core IgM Non-Reactive (Nonreactive); Hepatitis B Surface Antigen Non-Reactive (Nonreactive); Hepatitis C Virus Antibody Non-Reactive (Nonreactive)
[2022-12-17 17:01] LABS: HIV 1 & 2 Antibody Non-Reactive (Non-Reactiv); HIV 1 & 2 Antigen Non-Reactive (Non-Reactiv)
[2022-12-17 17:06] LABS: Estmated Average Glucose 114; Hemoglobin A1C 5.6 % (4.0-6.0)
[2022-12-17] MEDS: methylPREDNISolone sod succ 40 MG in water for injection-sterile 1 ML 12 MG IVP (17:23)
[2022-12-17 17:33] LABS: Troponin 5 6HR Delta 0 ng/L (0-12)
[2022-12-17] MEDS: ropinirole 0.25 mg Tablet PO (20:04)
[2022-12-17] MEDS: budesonide 0.5 mg/2 mL Neb INHALATION (20:06)
[2022-12-18] VITALS (8 sets, daily range): BP systolic 130–159; BP diastolic 63–94; PULSE 89–114; RESP 16–18; TEMP 36.6–37.1; O2SAT 87–98
[2022-12-18] MEDS: methylPREDNISolone sod succ 40 MG in water for injection-sterile 1 ML 12 MG IVP ×2 (00:47→07:53)
[2022-12-18] MEDS: iohexol 350 mg/mL 500 mL Btl (per mL) IV (01:06)
[2022-12-18] MEDS: nicotine 14 mg Patch 1 PATCH TRANSDERMA (07:52)
[2022-12-18] MEDS: cefTRIAXone 1,000 MG in sodium chloride 0.9% (plus) 50 ML 100 MG IV (07:53)
[2022-12-18] MEDS: ipratropium-albuterol 3 mL Neb INHALATION (08:03)
[2022-12-18] MEDS: budesonide 0.5 mg/2 mL Neb INHALATION (08:03)
[2022-12-18] MEDS: azithromycin 250 MG in sodium chloride 0.9% 250 ML IV (08:48)
[2022-12-18] MEDS: ALPRAZolam 0.5 mg Tablet 0.25 MG PO (09:01)
[2022-12-18] MEDS: benzonatate 100 mg Capsule PO (09:01)
[2022-12-18 09:15] LABS: Basophils % 0.2 %; Hematocrit 41.5 % (36-47); Lymphocytes # 1.6 10^3/uL (0.8-4.8); Mean Corpuscular HGB Conc 31.8 g/dL (30-55); Mean Corpuscular Hemoglobin 32.3 pg (27-33); Mean Corpuscular Volume 101.5 fl (85-98); Mean Platelet Volume 9.7 fL (7.4-10.4); Monocytes # 1.1 10^3/uL (0.2-0.9); Neutrophils # 9.72 10^3/uL (1.8-7.7); Neutrophils % 77.4 %; Nucleated Red Blood Cells % 0 %; Platelet Count 445 10^3/cmm (157-399); Red Blood Count 4.09 10^6/uL (3.85-5.65); Red Cell Distribution Width 14.5 % (12.1-15.1); White Blood Count 12.55 10^3/uL (3.29-11.43)
[2022-12-18 09:32] LABS: Anion Gap 13.6 (5-19); Blood Urea Nitrogen 13 mg/dL (6-20); Calcium 8.8 mg/dL (8.5-10.5); Carbon Dioxide 25 mmol/L (22-29); Chloride 102 mmol/L (98-107); Glomerular Filtration Rate 165.7 mL/min (90-130); Glucose 187 mg/dL (65-115); Osmolality Calculated 289 mOsm/kg (285-295); Potassium 3.6 mmol/L (3.5-5.1); Sodium 137 mmol/L (136-145)
--- NOTE | 2022-12-18 09:34 | PC.CHAP ---
Pastoral Care Encounter/Spiritual Assessment Type of Contact [] Declined software engineer web applications visit [] Patient/Family/Request visit [] Outpatient visit [] Follow-up visit [] Physician referral [] Code/Alert [x] Routine visit [] Staff referral [] Actively dying [] Patient sleeping [x] Family support [] [] Out of room [] Palliative care [] [] Receiving care in room [] Pre-surgical visit [] Trauma [] Long length of stay [] ICU visit [] Other: Relational/Emotional Strength [x] Patient feels connected with others/family/visitors/staff [] Distress [] Loneliness/isolation [] Abandonment Spirituality of Patient [x] Person of Mary Ellen [] Attends Mandaeism of their [place] [x] Believes in Prayer [] Reads Bible or Lutheran materials [] There are Spiritual issues to be addressed [employer] Interventions [x] Prayer [x] Active listening [] Non-anxious presence [x] Spiritual/emotional support [] Crisis/trauma care [] Spiritual counseling [] Bereavement support [] Provided bereavement packet [] Provided Bible/devotional materials [] Provided toy/stuffed animal, coloring book to patient or family member [] Provided Communion [] Anointing/[place] [] Salvation [x] Completed spiritual assessment [] Other: Impact on Illness or Injury [] Angry [] Fearful [] Anxious [] Often cries [] Exhaustion [] Unable to work [] Unable to attend lutheran [] Unable to walk/stand [] Unable to read [] Unable to drive [] Unable to eat/drink [] Unable to sleep [] Unable to be with family [] Patient intubated [] Other: Summary Time spent with patient 5 min
--- NOTE | 2022-12-18 10:33 | PM.DCS ---
Discharge Providers Date of Admission: 12/16/22 07:33 Date of Discharge: December 18, 2022 Attending Provider at Admission: Leonard Anderson DO Attending Provider at Discharge: Tony Busch MD Diagnoses at Discharge Discharge Diagnosis (1) Acute exacerbation of chronic obstructive airways disease: Status: Acute (2) Community acquired pneumonia: Status: Acute (3) Acute respiratory failure with hypoxia: Status: Acute (4) Anorexia: Status: Acute (5) Physical deconditioning: Status: Acute (6) Protein calorie malnutrition: Status: Acute Reason for Visit Reason for Visit: SOB Hospital Course Hospital Course Chantal Avila is a 57 year old female with a PMH of severe emphysema, and who is currently in the custody of the [facility]'s department, presented to the ER today with shortness of breath.? Patient says for the last few days she has had cough, increasing sputum production, and she has not had her home medications for a few weeks.? States that she normally uses albuterol several times a day for her symptoms.? She tells me that she has been wheezing more for the last 2 days.? Denies any fever, chills, chest pain, nausea/vomiting/diarrhea.? She is normally not on oxygen at baseline. ? She does admit to smoking a pack per day. In the ER, she was noted to be hypoxic upon admission with sats into the 80s.? She was started on 2 L of oxygen and this improved.? Chest x-ray demonstrated changes consistent with emphysema.? There was concern of a mild consolidation beginning.? She was given a dose of Rocephin and azithromycin in the ER.? Labs revealed a WBC count of 13, with the rest of the labs unremarkable.EKG showed sinus tachycardia.? She was admitted to the med surgical floor. 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, please see primary care provider Moderate chronic appearing superior endplate compression fracture of T8, likely at the site of a hemangioma, no pain complaints, see primary care Physical Exam Const: COMMON NORMALS: no acute distress and patient oriented x3 Resp: COMMON NORMALS: normal respiratory effort, No retractions, No use of accessory muscles and clear to auscultation bilaterally AUSCULTATION: clear to auscultation bilaterally Cardio: COMMON NORMALS: regular rate, regular rhythm, S1 normal heart sound present and S2 normal heart sound present RATE: regular rate RHYTHM: regular rhythm HEART SOUNDS: S1 normal heart sound present and S2 normal heart sound present GI: COMMON NORMALS: Normal to inspection, nondistended, normoactive bowel sounds present and non-tender Extremity: COMMON NORMALS: no pedal edema Neuro: COMMON NORMALS: patient oriented x3 Psych: COMMON NORMALS: mental status grossly normal Discharge Data Studies Completed and Pending Completed Studies During Hospitalization Category Date Time Status CT angio chest PE protcl [id number] Routine Cat Scan 12/17/22 15:50 Completed XR chest 1V portable [id number] Stat Exams 12/16/22 04:29 Completed Pending at discharge Category Date Time Status Basic Metabolic Panel AM LABS Lab 12/19/22 04:00 Ordered Basic Metabolic Panel AM LABS Lab 12/20/22 04:00 Ordered Complete Blood Count w/Auto AM LABS Lab 12/19/22 04:00 Ordered Complete Blood Count w/Auto AM LABS Lab 12/20/22 04:00 Ordered Radiology Impressions Chest X-Ray 12/16/22 04:29 IMPRESSION: 1. Pulmonary hyperinflation and interstitial coarsening consistent with COPD interstitial fibrosis. 2. There is increasing opacity at the left lung base. This may represent an area of atelectasis or in the appropriate clinical setting, developing pneumonia. Chest CTA 12/17/22 15:50 IMPRESSION: 1. No evidence of pulmonary embolus. 2. Severe bilateral centrilobular emphysema with superimposed bibasilar opacities. These may represent atelectasis or in the appropriate clinical setting, pneumonia, such as aspiration related. The presence of mildly enlarged bilateral hilar lymph nodes favors pneumonia. 3. Moderate chronic appearing superior endplate compression fracture of T8, likely at the site of a hemangioma. 4. 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 5. Punctate nonobstructive left nephrolithiasis. COMMENTS: In the absence of a history or active diagnosis of lung cancer, it is recommended that this patient with emphysema be evaluated for enrollment in a low dose CT lung cancer screening program. ADDENDUM: 12/18/22 0258 THIS REPORT CONTAINS FINDINGS THAT MAY BE CRITICAL TO PATIENT CARE. The findings were verbally communicated via telephone conference with Dr. Mccain at 2:57 AM CDT on 12/18/2022. The findings were acknowledged and understood. Laboratory Results WBC 12.55 10^3/uL (3.29-11.43) H 12/18/22 08:50 Corrected WBC Cancelled 12/18/22 04:59 RBC 4.09 10^6/uL (3.85-5.65) 12/18/22 08:50 Hgb 13.20 g/dL (11.27-16.99) 12/18/22 08:50 Hct 41.5 % (36-47) 12/18/22 08:50 MCV 101.5 fl (85-98) H 12/18/22 08:50 MCH 32.3 pg (27-33) 12/18/22 08:50 MCHC 31.8 g/dL (30-55) 12/18/22 08:50 RDW 14.5 % (12.1-15.1) 12/18/22 08:50 Plt Count 445 10^3/cmm (157-399) H 12/18/22 08:50 MPV 9.7 fL (7.4-10.4) 12/18/22 08:50 Gran % Cancelled 12/18/22 04:59 Neut % (Auto) 77.4 % 12/18/22 08:50 Lymph % (Auto) 13.0 % 12/18/22 08:50 Canadian % (Auto) 9.0 % 12/18/22 08:50 Eos % (Auto) 0.0 % 12/18/22 08:50 Baso % (Auto) 0.2 % 12/18/22 08:50 Neut # (Auto) 9.72 10^3/uL (1.8-7.7) H 12/18/22 08:50 Lymph # (Auto) 1.6 10^3/uL (0.8-4.8) 12/18/22 08:50 Canadian # (Auto) 1.1 10^3/uL (0.2-0.9) H 12/18/22 08:50 Eos # (Auto) 0.0 10^3/uL (0.0-0.8) 12/18/22 08:50 Baso # (Auto) 0.0 10^3/uL (0.0-0.1) 12/18/22 08:50 Absolute Gran (auto) Cancelled 12/18/22 04:59 Nucleated RBC % (auto) 0 % 12/18/22 08:50 Nucleated RBCs # 0.0 /100WBC 12/18/22 08:50 Specimen Type Arterial 12/16/22 07:25 Sample Site Brachial, right 12/16/22 07:25 ABG pH 7.40 (7.35-7.45) 12/16/22 07:25 ABG pCO2 45.5 mmHg (35-45) H 12/16/22 07:25 ABG pO2 79.9 mmHg (80.0-100.0) L 12/16/22 07:25 ABG HCO3 28.2 mmol/L (22-26) H 12/16/22 07:25 ABG O2 Saturation 96.7 12/16/22 07:25 ABG Base Excess 2.9 mmol/L (-2.0-2.0) H 12/16/22 07:25 Barron Test N/a 12/16/22 07:25 A-a O2 Gradient 8.2 mmHg (5-10) 12/16/22 07:25 Hematocrit 36.1 % (37-47) L 12/16/22 07:25 Hgb O2 Saturation 94.5 % (95-100) L 12/16/22 07:25 Carboxyhemoglobin 1.8 %THgb (0.4-20.1) 12/16/22 07:25 Methemoglobin 0.5 % (0.4-1.5) 12/16/22 07:25 Total Hemoglobin 11.8 g/dL (12-16) L 12/16/22 07:25 Sodium 137.0 mmol/L (131-143) 12/16/22 07:25 Potassium 5.2 mmol/L (3.5-5.0) H 12/16/22 07:25 Glucose 99.0 mg/dL (70-115) 12/16/22 07:25 Ionized Calcium 1.2 mmol/L (1.1-1.4) 12/16/22 07:25 O2 Delivery Device Nc 12/16/22 07:25 O2 Liters/Min 2.0 % 12/16/22 07:25 FiO2 28.0 % 12/16/22 07:25 Intermodal Owner Operator Truck Driver ID Gd 12/16/22 07:25 Sodium 137 mmol/L (136-145) 12/18/22 08:50 Potassium 3.6 mmol/L (3.5-5.1) 12/18/22 08:50 Chloride 102 mmol/L (98-107) 12/18/22 08:50 Carbon Dioxide 25 mmol/L (22-29) 12/18/22 08:50 Anion Gap 13.6 (5-19) 12/18/22 08:50 BUN 13 mg/dL (6-20) 12/18/22 08:50 Creatinine 0.4 mg/dL (0.5-0.9) L 12/18/22 08:50 GFR Calculation 165.7 mL/min (90-130) H 12/18/22 08:50 Glucose 187 mg/dL (65-115) H 12/18/22 08:50 Estimat Average Glucose 114 12/17/22 04:33 Hemoglobin A1c 5.6 % (4.0-6.0) 12/17/22 04:33 Calculated Osmolality 289 mOsm/kg (285-295) 12/18/22 08:50 Lactic Acid 0.9 mmol/L (0.5-2.2) 12/16/22 04:44 Calcium 8.8 mg/dL (8.5-10.5) 12/18/22 08:50 Total Bilirubin 0.2 mg/dL (0.15-1.2) 12/17/22 04:33 AST 22 U/L (0-32) 12/17/22 04:33 ALT 16 U/L (0-33) 12/17/22 04:33 Alkaline Phosphatase 118 U/L (35-105) H 12/17/22 04:33 Troponin T Baseline 6 ng/L (0-10) 12/17/22 10:27 Troponin T 120 Minute 6 ng/L (0-10) 12/17/22 12:35 Delta Troponin T 0 ABS# (0-10) 12/17/22 12:35 Troponin T Hi Sens 6Hr 6.00 ng/L (0-10) 12/17/22 16:45 Troponin T Hi Sens 6Hr Delta 0 ng/L (0-12) 12/17/22 16:45 NT-Pro-B Natriuret Pep 488 pg/mL (0-125) H 12/17/22 04:33 Total Protein 6.7 g/dL (6.6-8.7) 12/17/22 04:33 Albumin 3.1 g/dL (3.5-5.2) L 12/17/22 04:33 Globulin 3.6 g/dL (1.3-4.6) 12/17/22 04:33 Triglycerides 73 mg/dL (0-150) 12/17/22 12:35 Cholesterol 127 mg/dL (0-200) 12/17/22 12:35 LDL Cholesterol, Calc 40 mg/dL (50-129) L 12/17/22 12:35 HDL Cholesterol 72 mg/dL (60-100) 12/17/22 12:35 LDL/HDL Ratio 0.56 RATIO (0.00-3.22) 12/17/22 12:35 Cholesterol/HDL Ratio 1.76 mg/dL (0.0-4.40) 12/17/22 12:35 Procalcitonin 0.08 ng/mL (0-0.5) 12/17/22 04:33 Hepatitis A IgM Ab Non-reactive (Nonreactive) 12/17/22 04:33 Hep Bs Antigen Non-reactive (Nonreactive) 12/17/22 04:33 Hep B Core IgM Ab Non-reactive (Nonreactive) 12/17/22 04:33 Hepatitis C Antibody Non-reactive (Nonreactive) 12/17/22 04:33 HIV 1&2 Ab & HIV 1 Ag Non-reactive (Non-Reactiv) 12/17/22 04:33 HIV 1&2 Antibody Non-reactive (Non-Reactiv) 12/17/22 04:33 Vitals Last Vital Signs Temp 97.8 F 12/18/22 07:28 Pulse 107 H 12/18/22 08:05 Resp 18 12/18/22 08:00 BP 159/94 12/18/22 07:28 Pulse Ox 98 12/18/22 08:00 O2 Del Method Nasal Cannula 12/18/22 08:00 O2 Flow Rate 2 12/18/22 08:00 Discharge Plan Discharge Patient Disposition: Home Condition: Stable Prescriptions: New ropinirole 0.25 mg Tablet 0.25 mg PO BEDTIME PRN (Reason: Restlessness) 30 Days Qty: 30 0RF benzonatate 100 mg Capsule 100 mg PO TID PRN (Reason: Cough) 30 Days Qty: 90 0RF nicotine 21 mg/24 hr patch 24 hour 1 patch transdermal DAILY 28 Days Qty: 28 0RF prednisone 10 mg tablet 10 mg PO DIRECTED Qty: 53 0RF Rx Instructions: 4 tabs for 5 days, 3 tabs for 5 days, 2 tabs for 5 days, 1 tabs for 5 days, 0.5 tab for 5 days doxycycline hyclate 100 mg tablet 100 mg PO BID 5 Days Qty: 10 0RF amoxicillin-pot clavulanate 875-125 mg tablet 1 tab PO BID 5 Days Qty: 10 0RF Advair Diskus 100-50 mcg/dose blister with device 1 inh inhalation BID Qty: 60 0RF alprazolam 0.25 mg tablet 0.25 mg PO BID PRN (Reason: anxiety) 7 Days Qty: 14 0RF Continued albuterol sulfate 90 mcg/actuation HFA aerosol inhaler 2 inh INHALATION Q4H PRN (Reason: shortness of breath or wheezing) Qty: 8.5 1RF Discontinued methylprednisolone [Medrol (Junito)] 4 mg tablets,dose pack See Rx Instructions .ROUTE .COMPLEX Qty: 21 0RF Rx Instructions: orally per package directions Discharge Orders: Discharge Order (Routine); Ordered 12/18/22 Ordered By: Tony Busch Referrals: Dr. Goldman [Other] - 12/26/22 4:00 pm Discharge Diet: Regular Discharge Activity: Resume usual activity Patient Instructions: Opioid Safety Activity Restrictions/Additional Instructions: -please take antibiotics as prescribed -please stop smoking -please see nephrology for renal artery stensois -endplate compression fracture of T8, please see primary care Discharge Attestations Time Spent in Discharge Care*: greater than 30 min Time Spent in Smoking Cessation: more than 10 minutes Quality Metrics Clinical Quality Measures [ No reported AMI, CVA or VTE this stay] Coding Level of Care Code 01513 Total time (in minutes) for Discharge: 50 Diagnoses Acute exacerbation of chronic obstructive airways disease J44.1 Community acquired pneumonia J18.9 Acute respiratory failure with hypoxia J96.01 Anorexia R63.0 Physical deconditioning R53.81 Protein calorie malnutrition E46
--- NOTE | 2022-12-18 13:37 | PC.NURSE ---
Discharge Note Patient discharged to home via personal vehicle accompanied by boyfriend. Discharge instructions reviewed with patient and/or abrasives sales representative. Mobile pharmacy medications and/or prescriptions provided. Belongings/home medications returned. Patient wheeled to pharmacy directly for medications to fiber picker and given money for xanax. Then instructed by protective services social worker since self pay to discuss oxygen payment plan with HOME D[employer] company for oxygen requirements.
== END 2022-12-18 13:41 | disposition home or self-care (01) ==
LOC: ER 07:39 → MEDSURG 07:59
PROVIDERS: Emergency Medicine; Admitting Provider Family Medicine; Emergency Provider Family Medicine; Visit Provider Family Medicine
DX: J44.1 Chronic obstructive pulmonary disease with (acute) exacerbation (principal); J18.9 Pneumonia, unspecified organism; J96.01 Acute respiratory failure with hypoxia; R63.0 Anorexia; R53.81 Other malaise; E46 Unspecified protein-calorie malnutrition
CPT/HCPCS: 36415; 36600; 71045; 71275; 80048; 80051; 80053; 80061; 80074; 82330; 82805; 83036; 83605; 83880; 84145; 84484; 85025; 87806; 93005; 94640; 94664; 94760; 96365; 96366; 96367; 96372; 96375; 99285; G0378; J0456; J0696; J1650; J2920; J2930; J7030; J7050; J7626; Q9967